=== PATIENT | male | born 1960 | race Two or more races ===

== ENCOUNTER 2016-08-16 16:30 | Emergency (ER) | payer SELFPAY ==
[2016-08-16 16:46] VITALS: RESP 18; O2SAT 95
[2016-08-16] MEDS ORDERED: NS 1,000 ML IV ONE (17:03)
--- NOTE | 2016-08-16 17:11 | UCPHY ---
H & P Patient Type: New Chief Complaint Nursing Narrative: 1 wk ago hit top of head with +LOC- c/o inc. weakness/tired/FLORES Time Seen by Provider: 08/16/16 16:57 HPI/ROS: CHIEF COMPLAINT: Concussion, syncope HISTORY OF PRESENT ILLNESS: Patient is a 55-year-old homeless man who comes to the Urgent Care with his brother. He states that a week and a half ago he was trying to get out of the basement window when he hit his head on the ceiling and loss consciousness. Since that time he has had mild headaches, confusion and intermittent syncope. His brother spoke to him on the phone and could tell that he was confused so went to get him and brought him here. His brother states that occasionally he becomes limp and faint and falls to the ground and remains unconscious for several seconds. No seizure-like activity. No vomiting. Patient denies chest pain or shortness of breath. REVIEW OF SYSTEMS: Constitutional: denies: chills, fever, recent illness, recent injury EENTM: denies: blurred vision, double vision, nose congestion Respiratory: denies: cough, shortness of breath Cardiac: denies: chest pain, irregular heart rate, lightheadedness, palpitations Gastrointestinal/Abdominal: denies: abdominal pain, diarrhea, nausea, vomiting, blood streaked stools Genitourinary: denies: dysuria, frequency, hematuria, pain Musculoskeletal: denies: joint pain, muscle pain Skin: denies: lesions, rash, jaundice, bruising Neurological: See HPI Hematologic/Lymphatic: denies: blood clots, easy bleeding, easy bruising Immunologic/allergic: denies: HIV/AIDS, transplant EXAM: GENERAL: Well-appearing, well-nourished and in no acute distress. HEAD: No visible injury. Atraumatic, normocephalic. EYES: Pupils equal round and reactive to light, extraocular movements intact, sclera anicteric, conjunctiva are normal. ENT: TMs normal, nares patent, oropharynx clear without exudates. Moist mucous membranes. NECK: Normal range of motion, supple without lymphadenopathy or JVD. LUNGS: Breath sounds clear to auscultation bilaterally and equal. No wheezes rales or rhonchi. HEART: Regular rate and rhythm without murmurs, rubs or gallops. ABDOMEN: Soft, nontender, normoactive bowel sounds. No guarding, no rebound. No masses appreciated. BACK: No CVA tenderness, no spinal tenderness, step-offs or deformities EXTREMITIES: Normal range of motion, no pitting or edema. No clubbing or cyanosis. NEUROLOGICAL: Cranial nerves II through XII grossly intact. Normal speech, normal gait. 5/5 strength, normal movement in all extremities, normal sensation PSYCH: Normal mood, normal affect. SKIN: No visible abrasions or contusions. Warm, dry, normal turgor, no visible rashes or lesions. Source: Patient Exam Limitations: No limitations - Personal History Current Tetanus Diphtheria and Acellular Pertussis (TDAP): No - Medical/Surgical History Hx Asthma: No Hx Chronic Respiratory Disease: No Hx Diabetes: No Hx Cardiac Disease: No Hx Renal Disease: No Hx Cirrhosis: No Hx Alcoholism: No Other PMH: denies - Family History Significant Family History: Hypertension - Social History Smoking Status: Never smoked Alcohol Use: None Drug Use: None Constitutional: Initial Vital Signs Heart Rate 61 08/16/16 16:44 Respiratory Rate 18 08/16/16 16:44 Blood Pressure 127/69 H 08/16/16 16:44 O2 Sat (%) 95 08/16/16 16:44 O2 Delivery Mode Room Air Allergies/Adverse Reactions: No Known Allergies Allergy (Unverified 08/16/16 16:44) Home Medications: Medication Instructions Recorded NK [No Known Home Meds] 08/16/16 Medical Decision Making - Diagnostics EKG Interpretation: An EKG obtained and was read and documented in trace view. Please see trace view for full reading and report. Sinus rhythm, no acute ischemic changes Imaging: Results: CT scan of the head and cervical spine was obtained. The results of the study are negative for acute disease. The study was read by Dr. Thapa. I viewed the images myself on the PACS system. ED Course/Re-evaluation: Head CT ordered in this adult patient for trauma for the following indication: Headache, loss of consciousness and syncope 6:15 p.[address]. we discussed the CT and lab and EKG results. The patient is relieved. He also asked about a small lump below his left clavicle. He was not seen on CT scan. 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 We discussed elective removal. I will refer him to a concussion Clinic. He and his brother agree with this plan. I encouraged rest and hydration. He does not drink alcohol. Differential Diagnosis: Partial list of the Differential diagnosis considered include but were not limited to; concussion, syncope, seizure and although unlikely based on the history and physical exam, I also considered fracture, intracranial hemorrhage, CVA, cervical spine injury. I discussed these differential diagnoses and the plan with the patient as well as the usual and expected course. The patient understands that the diagnosis is provisional and that in medicine we are not always correct and that further workup is often warranted. Usual and customary warnings were given. All of the patient's questions were answered. The patient was instructed to return to the emergency department should the symptoms at all worsen or return, otherwise to followup with the physician as we discussed. - Data Points Laboratory Results: Laboratory Results 08/16/16 17:35 08/16/16 17:35 08/16/16 08/16/16 17:35 17:35 WBC 9.39 10^3/uL 10^3/uL (3.80-9.50) RBC 4.02 10^6/uL L 10^6/uL (4.40-6.38) Hgb 12.5 g/dL L g/dL (13.7-17.5) Hct 36.4 % L % (40.0-51.0) MCV 90.5 fL fL (81.5-99.8) MCH 31.1 pg pg (27.9-34.1) MCHC 34.3 g/dL g/dL (32.4-36.7) RDW 12.6 % % (11.5-15.2) Plt Count 275 10^3/uL 10^3/uL (150-400) MPV 9.6 fL fL (8.7-11.7) Neut % (Auto) 66.5 % % (39.3-74.2) Lymph % (Auto) 23.7 % % (15.0-45.0) [place] % (Auto) 6.7 % % (4.5-13.0) Eos % (Auto) 2.2 % % (0.6-7.6) Baso % (Auto) 0.6 % % (0.3-1.7) Nucleat RBC Rel Count 0.0 % % (0.0-0.2) Absolute Neuts (auto) 6.23 10^3/uL 10^3/uL (1.70-6.50) Absolute Lymphs (auto) 2.23 10^3/uL 10^3/uL (1.00-3.00) Absolute Monos (auto) 0.63 10^3/uL 10^3/uL (0.30-0.80) Absolute Eos (auto) 0.21 10^3/uL 10^3/uL (0.03-0.40) Absolute Basos (auto) 0.06 10^3/uL 10^3/uL (0.02-0.10) Absolute Nucleated RBC 0.00 10^3/uL 10^3/uL (0-0.01) Immature Gran % 0.3 % % (0.0-1.1) Immature Gran # 0.03 10^3/uL 10^3/uL (0.00-0.10) Sodium 143 mEq/L mEq/L (134-144) Potassium 3.5 mEq/L mEq/L (3.5-5.2) Chloride 106 mEq/L mEq/L (97-110) Carbon Dioxide 26 mEq/l mEq/l (22-31) Anion Gap 11 mEq/L mEq/L (8-16) BUN 12 mg/dL mg/dL (7-23) Creatinine 0.7 mg/dL mg/dL (0.7-1.3) Estimated GFR > 60 Glucose 83 mg/dL mg/dL (70-100) Calcium 8.8 mg/dL mg/dL (8.5-10.4) Specimen Hemolysis Cancelled Ethyl Alcohol Cancelled Medications Given: Discontinued Medications Sodium Chloride (Ns) 1,000 mls @ 0 mls/hr IV ONCE ONE PRN Reason: Wide Open Stop: 08/16/16 17:04 Last Admin: 08/16/16 17:34 Dose: 1,000 mls Departure - Departure Disposition: Home, Routine, Self-Care Clinical Impression: Post concussion syndrome Condition: Fair Instructions: Post Concussion Syndrome (ED) Referrals: NONE *PRIMARY CARE P,. [Primary Care Provider] - As per Instructions Shanna Foster MD [Medical Doctor] - As per Instructions - PQRS PQRS Measurement: Not applicable
[2016-08-16 17:43] LABS: % IMMATURE GRANULYOCYTES 0.3 % (0.0-1.1); ABSOLUTE IMMATURE GRANULOCYTES 0.03 10^3/uL (0.00-0.10); ADD DIFF? NO; ADD MORPH? NO; ADD SCAN? NO; ATYPICAL LYMPHOCYTE FLAG 10 (0-99); FRAGMENT RBC FLAG 0 (0-99); HEMATOCRIT 36.4 % (40.0-51.0); HEMOGLOBIN 12.5 g/dL (13.7-17.5); LEFT SHIFT FLG 0 (0-99); LIPEMIA HEMOLYSIS FLAG 90 (0-99); MEAN CELL HEMOGLOBIN 31.1 pg (27.9-34.1); MEAN CELL HEMOGLOBIN CONCENTR. 34.3 g/dL (32.4-36.7); MEAN CELL VOLUME 90.5 fL (81.5-99.8); MEAN PLATELET VOLUME 9.6 fL (8.7-11.7); PLATELET CLUMPS FLAG 0 (0-99); PLATELET COUNT 275 10^3/uL (150-400); RED BLOOD CELL COUNT 4.02 10^6/uL (4.40-6.38); RED CELL DISTRIBUTION WIDTH 12.6 % (11.5-15.2)
--- NOTE | 2016-08-16 17:50 | CPEKG ---
Heart Rate: 60 RR Interval: 1000 P-R Interval: 180 QRSD Interval: 86 QT Interval: 452 QTC Interval: 452 P [place]: 50 QRS [place]: 27 T Wave [place]: 35 EKG Severity - NORMAL ECG - EKG Impression: SINUS RHYTHM Electronically Signed By: Remington Cook 16-Aug-2016 17:51:43
[2016-08-16 17:53] LABS: ANION GAP 11 mEq/L (8-16); CALCIUM 8.8 mg/dL (8.5-10.4); CARBON DIOXIDE 26 mEq/l (22-31); CHLORIDE 106 mEq/L (97-110); CREATININE 0.7 mg/dL (0.7-1.3); GLOMERULAR FILTRATION RATE > 60; GLUCOSE 83 mg/dL (70-100); POTASSIUM 3.5 mEq/L (3.5-5.2); SODIUM 143 mEq/L (134-144)
[2016-08-19 08:48] VITALS: BP 136/57; PULSE 79; TEMP 98.6
== END 2016-08-16 18:23 | disposition home or self-care (01) ==
LOC: CED 16:30
DX: F07.81 Postconcussional syndrome (principal); Z59.0 Homelessness
CPT/HCPCS: 70450-PO; 72125-PO; 80048-PO; 85025-PO; 93010-PO; 99205-PO; G0463-PO